=== PATIENT | female | born 1940 | race American Indian/Alaskan Native ===

== ENCOUNTER 2024-08-25 19:22 | Emergency (ER) | payer OTHER ==
[~2024-08-25] VITALS: Ht 149.9 cm; Wt 46.7 kg
[2024-08-25] MEDS ORDERED: KETOROLAC TROMETHAMINE 60 MG VIAL IM STA (21:17)
[2024-08-25] MEDS ORDERED: OxyCODONE HCL 5 MG TABLET (ROXICODONE) PO STA (21:18)
== END 2024-08-25 22:41 | disposition home or self-care (01) ==
LOC: ER 19:24
DX: S80.02XA Contusion of left knee, initial encounter (principal); W19.XXXA Unspecified fall, initial encounter; Y93.89 Activity, other specified; Y92.89 Other specified places as the place of occurrence of the external cause; Y99.8 Other external cause status
CPT/HCPCS: 29505; 73560; 96372; 99283; J1885